=== PATIENT | female | born 1980 | race Caucasian/White ===

== ENCOUNTER 2016-04-23 13:47 | Outpatient (CLI) | payer BC ==
[~2016-04-23 13:47] MED LIST: BCPILLS PO
== END 2016-04-23 14:30 | disposition home or self-care (01) ==
LOC: C.OPB 13:47 → C.LD 13:47 → C.OPB 14:30
PROVIDERS: ATTEND Obstetrics & Gynecology
DX: O24.419 Gestational diabetes mellitus in pregnancy, unspecified control (principal); Z3A.36 36 weeks gestation of pregnancy

== ENCOUNTER → 2016-04-26 | Outpatient (CLI) | payer BC ==
[~2016-04-26] MED LIST changes: +INSU1INJ23 SC; +NVLGI/PEN SC; +PRENTAB26 PO; +ZNTT/150
== END | disposition home or self-care (01) ==
LOC: C.LABSPEC 04-25 14:41
PROVIDERS: ATTEND Obstetrics & Gynecology
DX: O09.523 Supervision of elderly multigravida, third trimester (principal)

== ENCOUNTER 2016-05-19 07:48 | Inpatient (IN) | payer BC ==
[~2016-05-19] VITALS: Ht 165.1 cm; Wt 97.7 kg
[~2016-05-19 07:48] MED LIST changes: -INSU1INJ23 SC; -NVLGI/PEN SC; -PRENTAB26 PO; -ZNTT/150
[2016-05-19] MEDS ORDERED: LACTATED RINGER'S 1000ML 500 ML IV PRN ×2 (07:54→12:37)
[2016-05-19] MEDS ORDERED: OXYTOCIN 30 UNITS/500ML NSS IV PRN ×2 (08:00→15:00)
[2016-05-19] MEDS: LACTATED RINGER'S 1000ML 1,000 ML IV SCH ×2 (08:12→12:08)
[2016-05-19 08:13] LABS: HEMATOCRIT 38.8 % (37-47); MEAN CELL VOLUME 82.6 fL (80-100); MEAN CORPUSCULAR HEMOGLOBIN 28.5 pg (25-34); MEAN CORPUSCULAR HGB CONC 34.5 g/dl (32-36); PLATELET COUNT 170 K/uL (130-400); WHITE BLOOD COUNT 7.91 K/uL (4.8-10.8)
[2016-05-19 09:03] VITALS: Ht 165.1 cm; Wt 97.7 kg
[2016-05-19] MEDS ORDERED: ZNTT/150 (09:07)
[2016-05-19] MEDS ORDERED: INSU1INJ23 SC (09:16)
[2016-05-19] MEDS ORDERED: NVLGI/PEN SC (09:16)
[2016-05-19] MEDS ORDERED: PRENTAB26 PO (09:17)
[2016-05-19] MEDS: LACTATED RINGER'S 1000ML 1,000 ML IV PRN ×2 (11:29→12:08)
[2016-05-19] MEDS ORDERED: EpHEDrine SULFATE INJ 50 MG/ML AMP ONE (11:32)
[2016-05-19] MEDS ORDERED: BUPIVACAINE 0.25% 30 ML VIAL ONE (11:32)
[2016-05-19] MEDS ORDERED: FENTANYL CITRATE INJ 50 MCG/1 ML 2 ML VIAL ONE (11:33)
[2016-05-19] MEDS ORDERED: FENTANYL 2MCG/ML ROPIV 1.25MG/ML 100ML BAG EPI ONE (11:33)
[2016-05-19] MEDS ORDERED: NALOXONE HCL INJ 1 MG in SODIUM CHLORIDE 0.9% 1000ML 1,000 ML IV PRN (12:37)
[2016-05-19] MEDS ORDERED: ONDANSETRON INJ 2 MG/ML 2 ML VIAL IV PRN (12:45)
[2016-05-19] MEDS ORDERED: NALOXONE HCL INJ 0.4 MG/1 ML VIAL/CARP IV PRN (12:45)
[2016-05-19] MEDS ORDERED: PROMETHAZINE HCL INJ 25 MG in SODIUM CHLORIDE 0.9% 50ML 50 ML IV PRN (12:45)
[2016-05-19] MEDS ORDERED: METOCLOPRAMIDE HCL INJ 20 MG in SODIUM CHLORIDE 0.9% 50ML 50 ML IV PRN (12:45)
[2016-05-19] MEDS ORDERED: FENTANYL 2MCG/ML ROPIV 1.25MG/ML 100ML BAG EPI PRN (12:45)
[2016-05-19] MEDS ORDERED: DiphenhydrAMINE HCL 50 MG/ML VIAL IV PRN (12:45)
[2016-05-19] MEDS ORDERED: EpHEDrine SULFATE INJ 50 MG/ML AMP IV PRN (12:45)
[2016-05-19] MEDS ORDERED: NALBUPHINE HCL INJ 10 MG/ML AMP IV PRN (12:45)
[2016-05-19] MEDS ORDERED: SUPERCREAM 0.870 % 15GM JAR EXT PRN (15:00)
[2016-05-19] MEDS ORDERED: ACETAMINOPHEN 325 MG TAB PO PRN (15:00)
[2016-05-19] MEDS ORDERED: LANOLIN OINT EXT PRN ×2 (15:00)
[2016-05-19] MEDS ORDERED: IBUPROFEN 600 MG TAB PO PRN (15:00)
[2016-05-19] MEDS ORDERED: BENZOCAINE 20% AER SPR 82.5 GM CAN EXT PRN (15:00)
[2016-05-19] MEDS ORDERED: HYDROCORTISONE ACETATE 25 MG SUPP PR PRN (15:00)
[2016-05-19] MEDS ORDERED: ACETAMINOPHEN/CODEINE 300/30MG TAB PO PRN ×2 (15:00)
--- NOTE | 2016-05-19 15:12 | Vaginal Delivery Summary ---
Vaginal Delivery Summary Pt is a 36F, EDC 05/22/16 who presented for induction of labour at 8am because of GDM. Upon fully dilating at 1:45 patient pushed to a 3+ station. Head was delivered in MANISHA left presentation over an intact perineum. No nuchal cord. Infant was placed onto mothers abdomen for stimulation. Cord was clamped and cut on the abdomen. Nose and mouth were suctioned. was crying and moving all 4 limbs. APGARS 8,9 (off of colours). Placenta was removed by gentle traction. Placenta was intact and had a 3 vessel cord. Hemostasis was achieved by gentle massage of the uterus. 2nd degree laceration was repaired. Cervix, culci and rectum were intact. [id number]. Mother and child were doing well at the end of delivery. - Georges Lynch PGY1 (resident)
--- NOTE | 2016-05-19 16:46 | Anesthesia Procedure Note ---
Anesthesia Epidural Removal Nt Date & Time May 19, 2016 at 16:46 Vital Signs Pain Intensity: 6.0 Notes Mental Status: alert / awake / arousable, participated in evaluation Nausea / Vomiting: adequately controlled Pain: adequately controlled Airway Patency, RR, SpO2: stable & adequate BP & HR: stable & adequate Hydration State: stable & adequate Neuraxial Anesthesia: was administered Anesthetic Complications: no major complications apparent, pt satisfied with anesthetic care Epidural: removed without complications, with tip intact
--- NOTE | 2016-05-19 16:48 | DELIVERY SUMMARY ---
DATE OF OPERATION: 05/19/2016 The patient is a 36-year-old 2, para 1-0-0-1, white female, EDC of 05/22/2016 who presented for induction of labor because of GDM on insulin. She was begun on pitocin augmentation and ruptured membranes for clear fluid spontaneously. she received effective epidural analgesia. she progressed to fully dilated and pushed effectively over intact perineum for delivery of a viable male infant. mouth & nares were suctioned on the perineum. the was crying & moving all limbs and was placed on mothers abdomen for further evaluation. the placenta was delivered intact with a 3 vessel cord. a 2nd degree perineal laceration was repaired with 3-0 chromic in the usual fashion. bilateral labial abrasions were not bleeding & not repaired. EBL is 350 mls. MOther & infant are doing well after delivery. I attest to the content of the Intraoperative Record and any orders documented therein. Any exceptions are noted below. MTDD
[2016-05-19 17:50] VITALS: BP 119/55; PULSE 93; TEMP 36.8
[2016-05-19 20:15] VITALS: BP 125/71; PULSE 83; TEMP 37.1
[2016-05-19 23:40] VITALS: BP 106/69; PULSE 82; TEMP 36.8
[2016-05-20 05:10] VITALS: BP 113/73; PULSE 76; TEMP 36.9
[2016-05-20 07:50] VITALS: BP 102/68; PULSE 76; TEMP 36.7
--- NOTE | 2016-05-20 07:59 | Progress Note ---
Subjective May 20, 2016. Subjective conversation w/ patient Ambulation: ambulating normally Voiding: no voiding problems Passing Gas: No Diet Tolerance: Regular Diet Lochia: Moderate Feeding Type: Breast Feeding Pain: 04/11 Review of Systems Constitutional: No chills, No fever Respiratory: No cough, No shortness of breath Cardiac: No chest pain, No palpitations Objective Vital Signs Date Time Temp Pulse Resp B/P Pulse Ox O2 Delivery O2 Flow Rate FiO2 05/20/16 05:10 36.9 76 18 113/73 Room Air 05/19/16 23:40 Room Air 05/19/16 23:40 36.8 82 18 106/69 Room Air 05/19/16 20:15 37.1 83 18 125/71 Room Air 05/19/16 17:50 Room Air 05/19/16 17:50 36.8 93 18 119/55 Room Air Physical Exam General Appearance: WELL-APPEARING Respiratory/Chest: chest non-tender, lungs clear Cardiovascular: regular rate, rhythm, no murmur Abdomen: normal bowel sounds, non tender Fundus: Firm, Non-Tender, Relation to Umbilicus (1 cm above umbilicus) Extremities: normal range of motion, non-tender, no calf tenderness Laboratory Results Last 24 Hours Test 05/19/16 08:00 05/19/16 08:05 05/19/16 13:00 05/20/16 04:44 Bedside Glucose 97 mg/dl 67 mg/dl White Blood Count 7.91 K/uL Red Blood Count 4.70 M/uL Hemoglobin 13.4 g/dL Hematocrit 38.8 % Mean Corpuscular Volume 82.6 fL Mean Corpuscular Hemoglobin 28.5 pg Mean Corpuscular Hemoglobin Concent 34.5 g/dl RDW Standard Deviation 40.5 fL RDW Coefficient of Variation 13.5 % Platelet Count 170 K/uL Mean Platelet Volume 11.0 fL Assessment and Plan Post- Day#: 1 Continue Routine Care: Resident Physician Supervision Note: I interviewed and examined the patient. Discussed with Dr. Lynch and agree with findings and plan as documented in the note. Any exceptions or clarifications are listed here: [None] Documented By: Kya Cuevas 36 F s/p Day1 - Vital signs reviewed and WNL - Hemoglobin pending this AM - Blood type A+, GBS -, Rubella immune - Patient doing well clinically - Encourage ambulation, monitor and control pain with motrin, resume regular diet, monitor lochia - Encourage Breast Feeding - CONTINUE ROUTINE POST CARE
[2016-05-20 08:12] LABS: HEMATOCRIT 34.6 % (37-47)
[2016-05-20] MEDS: PRENATAL VITAMIN TAB PO SCH (08:38)
[2016-05-20 11:50] VITALS: BP 112/69; PULSE 81; TEMP 36.9
[2016-05-20 16:10] VITALS: BP 111/69; PULSE 75; TEMP 36.8
[2016-05-20 23:45] VITALS: BP 114/73; PULSE 74; TEMP 36.7
--- NOTE | 2016-05-21 06:56 | Discharge Instructions ---
Discharge Instructions Admission Reason for Admission: Induction Discharge Discharge Diagnosis / Problem: Vaginal delivery Discharge Goals Goal(s): Routine recovery after delivery Activity Recommendations Activity Limitations: per Instructions/Follow-up section . Instructions / Follow-Up Instructions / Follow-Up ACTIVITY RECOMMENDATIONS: * Gradual return to full activity over the next 2-3 weeks. * No lifting - nothing heavier than baby over the next 2-3 weeks. * Do not engage in vigorous exercise, sexual activity or sports until cleared by your physician. * Do not drive or operate any motorized equipment until cleared by your physician. * You may shower/bathe daily. MEDICATIONS: For discomfort or pain, you may use Acetaminophen (Tylenol), Ibuprofen (Advil), or Naproxen (Aleve) following the package directions. For constipation you may use Colace following the package directions. BREAST CARE: If you are not breast feeding: * Wear a supportive bra 24 hours a day for one to two weeks. * Avoid stimulating your breasts and nipples as much as possible during the first few weeks after delivery. * When taking a shower, have the warm water hit your back, not breasts. * When your breasts feel full, apply ice packs. Usually three to four times a day helps ease the discomfort. * Take a mild pain medication (Tylenol / Motrin) when you are uncomfortable. If breast feeding: * Use breast milk to lubricate nipples. Lansinoh cream may be used for sore nipples. You do not need to remove cream prior to breast feeding. If using a different brand of cream, check the label for directions regarding removal of cream prior to nursing. * Wear a supportive bra. * If having problems with breasts or breast feeding, call a weight loss sales consultant or your health care provider. EPISIOTOMY CARE: After delivery, if you have an episiotomy (stitches), the following steps will ease discomfort and aid healing. * For the first 24 hours after delivery, place ice packs next to your episiotomy to help reduce swelling. * After the first 24 hour-period, sitz baths, either portable or in the tub, are suggested. A shower with a shower arm sprayed over the episiotomy may be comforting. * [place] care should be done after each voiding and bowel movement. Squirt warm water from a plastic bottle over the perineum (region of the body between the anus and urinary opening) and pat dry. * Use Dermoplast to ease discomfort. Shake container. [place] directly over the episiotomy. Place a Tucks on a clean sanitary pad next to your episiotomy. SPECIAL CARE INSTRUCTIONS: When you are discharged from the hospital, it is important for you to follow the instructions listed below: * During the first week at home, you should be able to care for yourself and your baby. In addition, the usual light household activities are encouraged. * Limit your activities to the way you feel. Do not try to clean the house or move furniture. Be sensible. * If you actively engage in sports and have done so up until the time of your delivery, you may resume these activities as soon as you feel able. This may take up to one month or even longer. Use good judgment. * Continue to take your vitamins for at least six weeks after the of your baby. * Your diet need not be limited unless you were on a special diet before your delivery. Breast-feeding mothers need around 2500 calories per day and at least 64-80 ounces of fluid per day (8 to 10 glasses). * You should eat foods from the four major food groups. Crash diets or fad diets are to be avoided. Eating lean meats, fresh fruits and vegetables, low-fat dairy products, high fiber foods and a regular exercise program, will help you get back to your pre- weight without putting your health at risk. * Constipation is sometimes a problem after delivery. Take a mild laxative as needed. If breast feeding, Milk of Magnesia is acceptable to use. You may use a suppository or Fleets enema if no episiotomy. * A daily shower or tub bath is suggested. Be sure to thoroughly and gently dry the perineum. * A bloody vaginal discharge will usually continue until around four weeks post . A small amount of bleeding may continue for as long as six weeks. Vaginal discharge changes from the bright red bleeding after delivery to pink then brownish and finally yellowish-pink before becoming white and disappearing. * Bleeding may increase with activity. Your first period may come in 4-8 weeks. If you are breast feeding, your period may be delayed even longer. * [place] (sex) can begin whenever both you and your partner feel comfortable and do not have any form of genital infection. It is recommended that you wait at least six weeks for internal and external healing to occur. If you have questions, please talk to your health care practitioner. A condom should be used to prevent infection and . * Foreplay, gentle intercourse and lubrication is very important the first several times to prevent pain. A water-based lubricant such as K-Y jelly or Astroglide may be used. * If you have RH negative blood and your baby is RH positive, you will receive RHOGAM by injection prior to discharge. The nurse will give you a card to keep with you that has the date and place that you received RHOGAM after delivery. * During your care, you had a Rubella screen done to check for the presence of rubella antibodies in your blood. If your test was negative, you will receive a Rubella vaccine prior to discharge. This vaccine may cause a fever, soreness at the injection site and flu-like symptoms. If these symptoms persist, notify your health care practitioner. is not advised for one month after a Rubella vaccine. * Verbalizes understanding of car seat law as reviewed with patient nursing. * Car Seat hand-out given and reviewed with patient by nursing. * Shaken baby information reviewed with patient by nursing. Call you doctor if: * Heavy bleeding (saturating several pads an hour) or passing clots the size of your fist. * A fever >101 degrees F (38.3 degrees C) on two occasions four hours apart and /or chills. * Unusual pain in the pelvic or vaginal areas. * "Baby Blues" lasting longer than two weeks. If you have any questions or concerns, call your health care practitioner at . FOLLOW UP VISIT: * Please call the office at to schedule a 6 week examination. It is important you keep this appointment. It is important for you to make arrangements for either yearly or twice yearly check-ups thereafter. Current Hospital Diet Patient's current hospital diet: Regular OB Diet Discharge Diet Recommended Diet: Regular Diet Pending Studies Studies pending at discharge: no Medical Emergencies . Who to Call and When: Medical Emergencies: If at any time you feel your situation is an emergency, please call 911 immediately. . Non-Emergent Contact Non-Emergency issues call your: Primary Care Provider . . "Provider Documentation" section prepared by Halima Moody. VTE Core Measure Inpt VTE Proph given/why not?: Treatment not indicated
--- NOTE | 2016-05-21 07:07 | Progress Note ---
Subjective May 21, 2016. Subjective conversation w/ patient, physical exam Ambulation: ambulating normally Voiding: no voiding problems Passing Gas: Yes Diet Tolerance: Regular Diet Lochia: Moderate Feeding Type: Breast Feeding Review of Systems Constitutional: No chills, No fever Respiratory: No cough Cardiac: No chest pain Abdomen: No nausea, No vomiting Objective Vital Signs Date Time Temp Pulse Resp B/P Pulse Ox O2 Delivery O2 Flow Rate FiO2 05/20/16 23:45 Room Air 05/20/16 23:45 36.7 74 18 114/73 Room Air 05/20/16 16:10 36.8 75 16 111/69 Room Air 05/20/16 16:10 Room Air 05/20/16 11:50 36.9 81 16 112/69 Room Air 05/20/16 07:50 Room Air 05/20/16 07:50 36.7 76 18 102/68 Room Air Physical Exam General Appearance: WELL-APPEARING, NO APPARENT DISTRESS Respiratory/Chest: no respiratory distress, no accessory muscle use Cardiovascular: no edema Abdomen: non tender, soft Fundus: Firm Extremities: no calf tenderness Laboratory Results Last 24 Hours Test 05/20/16 07:55 Hemoglobin 11.8 g/dL Hematocrit 34.6 % Assessment and Plan Post- Day#: 2 Continue Routine Care: recovery without complications, ready for d/c home.
[2016-05-21 08:00] VITALS: BP 112/66; PULSE 82; TEMP 37.2
[2016-05-21] MEDS: PRENATAL VITAMIN TAB PO SCH (08:11)
[2016-05-21 10:15] VITALS: BP_DIAS 66; PULSE 82; TEMP 37.2
== END 2016-05-21 10:15 | disposition home or self-care (01) | DRG 775 ==
LOC: C.LD 07:48 → C.OBG 19:09
PROVIDERS: ADMIT Obstetrics & Gynecology; ATTEND Obstetrics & Gynecology
PROC: 3E033VJ Introduction of Other Hormone into Peripheral Vein, Percutaneous Approach (ICD-10-PCS; principal; 2016-05-19)
PROC: 10E0XZZ Delivery of Products of Conception, External Approach (ICD-10-PCS; principal; 2016-05-19)
PROC: 0KQM0ZZ Repair Perineum Muscle, Open Approach (ICD-10-PCS; principal; 2016-05-19)
DX: O24.414 Gestational diabetes mellitus in pregnancy, insulin controlled (principal); O70.1 Second degree perineal laceration during delivery; Z3A.39 39 weeks gestation of pregnancy; Z37.0 Single live birth

== ENCOUNTER → 2016-06-30 | Outpatient (CLI) | payer BC ==
[~2016-06-30] MED LIST changes: -BCPILLS PO; +PRENTAB26 PO; +ZNTT/150
== END | disposition home or self-care (01) ==
LOC: C.PAPS 14:46
PROVIDERS: ATTEND Obstetrics & Gynecology
DX: Z12.4 Encounter for screening for malignant neoplasm of cervix (principal)

== ENCOUNTER → 2016-08-14 | Outpatient (CLI) | payer BC ==
[2016-08-14 09:34] LABS: PREG INTERNAL NEGATIVE QC NEG CLEAR BACKGROUND; PREG INTERNAL POSITIVE QC POS CONTROL LINE
== END | disposition home or self-care (01) ==
LOC: C.LAB1850 08:33
PROVIDERS: ATTEND Obstetrics & Gynecology
DX: Z30.430 Encounter for insertion of intrauterine contraceptive device (principal)